=== PATIENT | male | born 1960 | race African-American/Black ===

== ENCOUNTER 2018-08-19 14:05 | Emergency (ER) | payer MEDICAID ==
[~2018-08-19] VITALS: Ht 167.6 cm; Wt 65.0 kg
[2018-08-19 14:57] LABS: BASOPHILS % 1.3 % (0.0-2.0); HEMATOCRIT. 31.2 % (42.0-52.0); HEMOGLOBIN. 10.7 g/dL (14.0-18.0); LYMPHOCYTES % 22.7 % (20.0-50.0); MEAN CORPUSCULAR HEMOGLOBIN 29.8 pg (28.0-32.0); MEAN PLATELET VOLUME 7.8 fl (7.4-10.4); MONOCYTES % 10.5 % (2.0-8.0); NEUTROPHILS % 62.5 % (40.0-76.0); PLATELET 233 x1000/uL (130-400); RED BLOOD CELL COUNT 3.58 mill/uL (4.7-6.1); RED CELL DISTRIBUTION WIDTH 13.6 % (11.6-14.6)
[2018-08-19 15:00] LABS: CHLORIDE 109 mEq/L (98-107)
[2018-08-19 15:05] LABS: *AMPHETAMINES SCREEN URINE NEGATIVE (NEGATIVE); *BARBITURATES SCREEN URINE NEGATIVE (NEGATIVE); *BENZODIAZEPINES SCREEN URINE NEGATIVE (NEGATIVE); *COCAINE SCREEN URINE NEGATIVE (NEGATIVE)
[2018-08-19 15:06] LABS: CANNABINOID URINE SCREEN NEGATIVE (NEGATIVE); METHADONE URINE SCREEN NEGATIVE (NEGATIVE); OPIATES URINE SCREEN NEGATIVE (NEGATIVE); PHENCYCLIDINE URINE SCREEN NEGATIVE (NEGATIVE)
[2018-08-19 15:12] LABS: ETHANOL BLOOD 332 mg/dL
[2018-08-19 19:50] VITALS: BP 117/59
== END 2018-08-19 19:50 | disposition home or self-care (01) ==
LOC: ER 14:05
DX: T51.0X1A Toxic effect of ethanol, accidental (unintentional), initial encounter (principal); F99 Mental disorder, not otherwise specified; F17.210 Nicotine dependence, cigarettes, uncomplicated; Y90.8 Blood alcohol level of 240 mg/100 ml or more; Z88.0 Allergy status to penicillin; Y92.89 Other specified places as the place of occurrence of the external cause
CPT/HCPCS: 36415; 80305; 80320; 99283; G0480

== ENCOUNTER 2021-03-18 14:46 | Inpatient (IN) | payer MEDICAID, OTHER ==
[~2021-03-18] VITALS: Ht 172.7 cm; Wt 68.0 kg
[~2021-03-18 14:46] MED LIST: HYDR-4001 MT; KEPP500 MT
[2021-03-18] MEDS ORDERED: IOHEXOL-350 100 ML BOTTLE ONE (16:04)
[2021-03-18 16:14] LABS: BASOPHILS % 0.8 % (0.0-2.0); EOSINOPHILS % 0.9 % (0.0-5.0); HEMATOCRIT. 36.3 % (42.0-52.0); HEMOGLOBIN. 11.8 g/dL (14.0-18.0); LYMPHOCYTES % 19.9 % (20.0-50.0); MEAN CORPUSCULAR HEMOGLOBIN 26.7 pg (28.0-32.0); MEAN PLATELET VOLUME 8.5 fl (7.4-10.4); NEUTROPHILS % 68.4 % (40.0-76.0); PLATELET 262 x1000/uL (130-400); RED BLOOD CELL COUNT 4.43 mill/uL (4.7-6.1); RED CELL DISTRIBUTION WIDTH 13.6 % (11.6-14.6)
[2021-03-18 16:19] LABS: CHLORIDE 105 mEq/L (98-107)
[2021-03-18 16:24] LABS: ETHANOL BLOOD < 10 mg/dL
[2021-03-18] MEDS ORDERED: HYDROCODONE/ACETAMINOPHEN 5/325MG TABLET PO PRN (20:15)
[2021-03-18] MEDS ORDERED: LORAZEPAM 0.5MG TABLET PO PRN (20:15)
[2021-03-18] MEDS ORDERED: ASPIRIN 325MG EC TABLET PO NR (20:15)
[2021-03-18] MEDS ORDERED: ACETAMINOPHEN 325MG TABLET PO PRN ×2 (20:15)
[2021-03-18] MEDS ORDERED: IPRATROPIUM/ALBUTEROL 0.5-3(2.5)MG/3ML NEB HHN PRN (20:15)
[2021-03-18] MEDS ORDERED: ONDANSETRON HCL 4MG/2ML INJ IV PRN (20:15)
[2021-03-18] MEDS ORDERED: DOCUSATE SODIUM 100MG CAPSULE PO PRN (20:15)
[2021-03-18] MEDS ORDERED: ATORVASTATIN CALCIUM 20MG TABLET PO SCH (21:00)
[2021-03-18] MEDS ORDERED: NALOXONE HCL 0.4MG/ML VIAL IV PRN (23:30)
[2021-03-19 07:44] LABS: BASOPHILS % 0.7 % (0.0-2.0); EOSINOPHILS % 1.6 % (0.0-5.0); HEMATOCRIT. 37.5 % (42.0-52.0); HEMOGLOBIN. 12.7 g/dL (14.0-18.0); LYMPHOCYTES % 16.3 % (20.0-50.0); MEAN CORPUSCULAR HEMOGLOBIN 27.6 pg (28.0-32.0); MEAN CORPUSCULAR VOLUME 81.8 fL (80.0-94.0); MEAN PLATELET VOLUME 8.7 fl (7.4-10.4); NEUTROPHILS % 72.4 % (40.0-76.0); PLATELET 272 x1000/uL (130-400); RED BLOOD CELL COUNT 4.58 mill/uL (4.7-6.1); RED CELL DISTRIBUTION WIDTH 13.7 % (11.6-14.6)
[2021-03-19 07:50] LABS: CHLORIDE 107 mEq/L (98-107)
[2021-03-19 08:00] VITALS: BP_SYST 129; BP_SYST 131; BP_DIAS 62; BP_DIAS 63
[2021-03-19] MEDS: ASPIRIN 81MG TABLET PO SCH (09:38)
[2021-03-19 12:00] VITALS: BP_SYST 128; BP_SYST 130; BP_DIAS 60
[2021-03-19 16:00] VITALS: BP 124/66
[2021-03-19 20:00] VITALS: BP 153/66
[2021-03-19] MEDS: ATORVASTATIN CALCIUM 40MG TABLET PO SCH (21:33)
[2021-03-20] VITALS: BP 147/55
[2021-03-20 04:00] VITALS: BP 161/66
[2021-03-20] MEDS: CLONIDINE 0.1MG TABLET PO PRN (04:49)
[2021-03-20 08:00] VITALS: BP 149/79
[2021-03-20 08:47] LABS: BASOPHILS % 0.7 % (0.0-2.0); HEMOGLOBIN. 12.9 g/dL (14.0-18.0); LYMPHOCYTES % 17.2 % (20.0-50.0); MEAN CORPUSCULAR HEMOGLOBIN 27.1 pg (28.0-32.0); MEAN CORPUSCULAR VOLUME 81.9 fL (80.0-94.0); MEAN PLATELET VOLUME 8.5 fl (7.4-10.4); MONOCYTES % 10.2 % (2.0-8.0); NEUTROPHILS % 69.9 % (40.0-76.0); PLATELET 275 x1000/uL (130-400); RED BLOOD CELL COUNT 4.76 mill/uL (4.7-6.1); RED CELL DISTRIBUTION WIDTH 13.5 % (11.6-14.6)
[2021-03-20 08:49] LABS: CHLORIDE 106 mEq/L (98-107)
[2021-03-20] MEDS: ASPIRIN 81MG TABLET PO SCH (09:27)
[2021-03-20 12:00] VITALS: BP 128/69
[2021-03-20] MEDS: DILTIAZEM HCL 30MG TABLET PO SCH ×2 (14:00→22:47)
[2021-03-20 15:43] VITALS: BP 135/58
[2021-03-20 20:00] VITALS: BP 151/79
[2021-03-20] MEDS: ATORVASTATIN CALCIUM 40MG TABLET PO SCH (21:00)
[2021-03-21] VITALS: BP 136/66
[2021-03-21 04:00] VITALS: BP 137/42
[2021-03-21 07:52] LABS: CHLORIDE 109 mEq/L (98-107)
[2021-03-21 08:01] LABS: BASOPHILS % 0.7 % (0.0-2.0); EOSINOPHILS % 2.4 % (0.0-5.0); HEMATOCRIT. 40.9 % (42.0-52.0); HEMOGLOBIN. 13.4 g/dL (14.0-18.0); LYMPHOCYTES % 18.8 % (20.0-50.0); MEAN CORPUSCULAR VOLUME 82.2 fL (80.0-94.0); MEAN PLATELET VOLUME 8.7 fl (7.4-10.4); MONOCYTES % 10.7 % (2.0-8.0); NEUTROPHILS % 67.4 % (40.0-76.0); PLATELET 279 x1000/uL (130-400); RED BLOOD CELL COUNT 4.97 mill/uL (4.7-6.1); RED CELL DISTRIBUTION WIDTH 13.2 % (11.6-14.6)
[2021-03-21 08:30] VITALS: BP 155/53
[2021-03-21] MEDS: CLOPIDOGREL 75MG TABLET PO SCH (09:37)
[2021-03-21] MEDS: ASPIRIN 81MG TABLET PO SCH (09:37)
[2021-03-21] MEDS: DILTIAZEM HCL 30MG TABLET PO SCH ×2 (09:37→21:48)
[2021-03-21] MEDS: ENOXAPARIN 40MG/0.4ML SYR SUBCUT SCH (09:37)
[2021-03-21 12:00] VITALS: BP 141/81
[2021-03-21 16:00] VITALS: BP 160/75
[2021-03-21] MEDS: CLONIDINE 0.1MG TABLET PO PRN (17:44)
[2021-03-21 20:00] VITALS: BP 113/47
[2021-03-21] MEDS: ATORVASTATIN CALCIUM 40MG TABLET PO SCH (21:48)
[2021-03-22] VITALS: BP 136/58
[2021-03-22 04:00] VITALS: BP 146/63
[2021-03-22 08:15] VITALS: BP 146/61
[2021-03-22] MEDS: ASPIRIN 81MG TABLET PO SCH (08:50)
[2021-03-22] MEDS: CLOPIDOGREL 75MG TABLET PO SCH (08:50)
[2021-03-22] MEDS: DILTIAZEM HCL 30MG TABLET PO SCH (08:51)
[2021-03-22] MEDS: ENOXAPARIN 40MG/0.4ML SYR SUBCUT SCH (08:51)
[2021-03-22] MEDS ORDERED: LIP40 PO (11:33)
[2021-03-22] MEDS ORDERED: DILT30TA38 PO (11:33)
[2021-03-22] MEDS ORDERED: CLOP75TA15 PO (11:33)
[2021-03-22 12:00] VITALS: BP 137/64
[2021-03-22 13:39] VITALS: BP 137/64
[2021-03-22 16:16] VITALS: BP 133/64
== END 2021-03-22 16:15 | disposition home health service (06) | DRG 45 ==
LOC: ER 14:52 → MICUSO 19:26 → EDBEDREQSVC 19:28 → EDBEDREQ 19:28 → EDBEDREQTM 19:28 → 5WST 23:21
PROVIDERS: ADMIT Internal Medicine; ATTEND Internal Medicine
DX: I63.411 Cerebral infarction due to embolism of right middle cerebral artery (principal); E44.1 Mild protein-calorie malnutrition; G81.94 Hemiplegia, unspecified affecting left nondominant side; E78.5 Hyperlipidemia, unspecified; F17.210 Nicotine dependence, cigarettes, uncomplicated; I10 Essential (primary) hypertension; J44.9 Chronic obstructive pulmonary disease, unspecified; Z20.822 Contact with and (suspected) exposure to COVID-19; F10.20 Alcohol dependence, uncomplicated; R47.1 Dysarthria and anarthria; R29.810 Facial weakness; Z88.0 Allergy status to penicillin; Z79.899 Other long term (current) drug therapy; Z71.6 Tobacco abuse counseling; Z71.41 Alcohol abuse counseling and surveillance of alcoholic; Z68.22 Body mass index [BMI] 22.0-22.9, adult
CPT/HCPCS: 36415; 70496; 70498; 70551; 71045; 80048; 80053; 80061; 80320; 82962; 83036; 84484; 85025; 87426; 92610; 93005; 93306; 93970; 97112; 97116; 97162; 97165; 97530; 99291; J1650; Q9967; G0480

== ENCOUNTER 2021-05-17 11:45 | Inpatient (IN) | payer OTHER ==
[~2021-05-17] VITALS: Ht 175.3 cm; Wt 57.2 kg
[~2021-05-17 11:45] MED LIST changes: +CLOP75TA15 PO; +DILT30TA38 PO; +DOCU250C14 MT; +LEVO500T89 MT; +LIP40 PO
[2021-05-17] MEDS ORDERED: ASPIRIN 325MG TABLET PO ONE (13:00)
[2021-05-17] MEDS ORDERED: IOHEXOL-350 100 ML BOTTLE ONE (13:08)
[2021-05-17 13:10] LABS: BASOPHILS % 0.9 % (0.0-2.0); EOSINOPHILS % 1.7 % (0.0-5.0); HEMATOCRIT. 30.1 % (42.0-52.0); HEMOGLOBIN. 10.1 g/dL (14.0-18.0); LYMPHOCYTES % 9.9 % (20.0-50.0); MEAN CORPUSCULAR HEMOGLOBIN 26.3 pg (28.0-32.0); MEAN PLATELET VOLUME 7.4 fl (7.4-10.4); MONOCYTES % 11.4 % (2.0-8.0); NEUTROPHILS % 76.1 % (40.0-76.0); PLATELET 594 x1000/uL (130-400); RED BLOOD CELL COUNT 3.86 mill/uL (4.7-6.1); RED CELL DISTRIBUTION WIDTH 13.7 % (11.6-14.6)
[2021-05-17 13:19] LABS: CHLORIDE 103 mEq/L (98-107)
[2021-05-17 13:32] LABS: ETHANOL BLOOD < 10 mg/dL
[2021-05-17 19:12] LABS: CLARITY URINE CLEAR (CLEAR); COLOR URINE YELLOW (YELLOW); KETONES URINE NEGATIVE (NEGATIVE); LEUKOCYTE ESTERASE URINE NEGATIVE (NEGATIVE); NITRITE URINE NEGATIVE (NEGATIVE); OCCULT BLOOD URINE 2+ (NEGATIVE); PH URINE 6.5 (4.5-8.0); PROTEIN URINE NEGATIVE (NEGATIVE); SPECIFIC GRAVITY URINE 1.038 (1.005-1.030); UROBILINOGEN URINE 0.2 E.U./dL (0.2-1.0)
[2021-05-17 19:21] LABS: *BARBITURATES SCREEN URINE NEGATIVE (NEGATIVE); *BENZODIAZEPINES SCREEN URINE NEGATIVE (NEGATIVE); *COCAINE SCREEN URINE NEGATIVE (NEGATIVE); OPIATES URINE SCREEN NEGATIVE (NEGATIVE)
[2021-05-17 19:22] LABS: *AMPHETAMINES SCREEN URINE NEGATIVE (NEGATIVE); CANNABINOID URINE SCREEN NEGATIVE (NEGATIVE); METHADONE URINE SCREEN NEGATIVE (NEGATIVE); PHENCYCLIDINE URINE SCREEN NEGATIVE (NEGATIVE)
[2021-05-17 22:15] VITALS: BP 121/38
[2021-05-18] MEDS ORDERED: RISP3 PO (02:55)
[2021-05-18] MEDS ORDERED: DOCU250C14 MT (02:55)
[2021-05-18] MEDS ORDERED: SERT50TA PO (02:55)
[2021-05-18 04:00] VITALS: BP 119/48
[2021-05-18 05:40] LABS: BASOPHILS % 1.1 % (0.0-2.0); EOSINOPHILS % 2.9 % (0.0-5.0); HEMATOCRIT. 30.6 % (42.0-52.0); HEMOGLOBIN. 10.3 g/dL (14.0-18.0); LYMPHOCYTES % 13.6 % (20.0-50.0); MEAN CORPUSCULAR HEMOGLOBIN 26.3 pg (28.0-32.0); MEAN PLATELET VOLUME 7.5 fl (7.4-10.4); MONOCYTES % 9.9 % (2.0-8.0); NEUTROPHILS % 72.5 % (40.0-76.0); PLATELET 598 x1000/uL (130-400); RED BLOOD CELL COUNT 3.92 mill/uL (4.7-6.1); RED CELL DISTRIBUTION WIDTH 13.9 % (11.6-14.6)
[2021-05-18 07:41] LABS: CHLORIDE 105 mEq/L (98-107)
[2021-05-18 07:52] LABS: LDL CHOLESTEROL 120 mg/dL (5-100)
[2021-05-18 07:54] LABS: HDL CHOLESTEROL 25 mg/dL (40-59)
[2021-05-18 08:00] VITALS: BP 116/51
[2021-05-18] MEDS: DOCUSATE SODIUM 250MG CAPSULE PO SCH ×2 (08:56→17:33)
[2021-05-18] MEDS: CLOPIDOGREL 75MG TABLET PO SCH (08:56)
[2021-05-18 11:45] VITALS: BP 112/59
[2021-05-18 15:59] VITALS: BP 110/60
[2021-05-18 20:00] VITALS: BP 127/52
[2021-05-18] MEDS: RISPERIDONE 1MG TABLET PO SCH (21:24)
[2021-05-18] MEDS: SERTRALINE HCL 50MG TABLET PO SCH (21:24)
[2021-05-18] MEDS: ATORVASTATIN CALCIUM 40MG TABLET PO SCH (21:24)
[2021-05-18] MEDS: ENOXAPARIN 40MG/0.4ML SYR SUBCUT SCH (22:08)
[2021-05-19] VITALS: BP 120/53
[2021-05-19 04:00] VITALS: BP 137/41
[2021-05-19 08:00] VITALS: BP 130/64
[2021-05-19] MEDS: CLOPIDOGREL 75MG TABLET PO SCH (08:51)
[2021-05-19] MEDS: DOCUSATE SODIUM 250MG CAPSULE PO SCH ×2 (08:56→17:15)
[2021-05-19] MEDS: LEVOFLOXACIN 500MG TABLET PO SCH (11:21)
[2021-05-19 11:59] VITALS: BP 128/64
[2021-05-19 15:58] VITALS: BP 122/68
[2021-05-19 20:00] VITALS: BP 117/52
[2021-05-19] MEDS: ATORVASTATIN CALCIUM 40MG TABLET PO SCH (22:00)
[2021-05-19] MEDS: ENOXAPARIN 40MG/0.4ML SYR SUBCUT SCH (22:01)
[2021-05-19] MEDS: RISPERIDONE 1MG TABLET PO SCH (22:01)
[2021-05-19] MEDS: SERTRALINE HCL 50MG TABLET PO SCH (22:01)
[2021-05-20] VITALS: BP 148/52
[2021-05-20 04:00] VITALS: BP 115/40
[2021-05-20 08:00] VITALS: BP 130/46
[2021-05-20] MEDS: DOCUSATE SODIUM 250MG CAPSULE PO SCH ×2 (09:00→17:30)
[2021-05-20] MEDS: CLOPIDOGREL 75MG TABLET PO SCH (09:01)
[2021-05-20] MEDS: LEVOFLOXACIN 500MG TABLET PO SCH (10:18)
[2021-05-20] MEDS: RISPERIDONE 1MG TABLET PO SCH ×2 (10:53→17:30)
[2021-05-20 12:02] VITALS: BP 115/55
[2021-05-20 16:10] VITALS: BP 117/61
[2021-05-20] MEDS: ATORVASTATIN CALCIUM 40MG TABLET PO SCH (21:40)
[2021-05-20] MEDS: SERTRALINE HCL 50MG TABLET PO SCH (21:40)
[2021-05-20] MEDS: ENOXAPARIN 40MG/0.4ML SYR SUBCUT SCH (21:40)
[2021-05-21] VITALS: BP 114/51
[2021-05-21 04:00] VITALS: BP 97/46
[2021-05-21 08:00] VITALS: BP 122/80
[2021-05-21] MEDS: DOCUSATE SODIUM 250MG CAPSULE PO SCH ×2 (08:43→17:00)
[2021-05-21] MEDS: RISPERIDONE 1MG TABLET PO SCH ×2 (08:43→17:22)
[2021-05-21] MEDS: CLOPIDOGREL 75MG TABLET PO SCH (08:43)
[2021-05-21] MEDS: LEVOFLOXACIN 500MG TABLET PO SCH (11:00)
[2021-05-21] MEDS ORDERED: LIDOCAINE HCL 2% JELLY 5ML ONE (11:30)
[2021-05-21] MEDS ORDERED: MIDAZOLAM HCL 2 MG/2 ML VIAL ONE (11:30)
[2021-05-21] MEDS ORDERED: FENTANYL CITRATE/PF 50MCG/ML 2ML VIAL ONE (11:31)
[2021-05-21] MEDS ORDERED: TETRACAINE/BENZOCAINE/BUTAMBEN 20 GM SPRAY MM ONE (11:37)
[2021-05-21 12:00] VITALS: BP 118/87
[2021-05-21] MEDS ORDERED: ASPI-1406 MT (12:25)
[2021-05-21] MEDS ORDERED: APIX5TAB MT (12:25)
[2021-05-21 15:16] VITALS: BP 126/53
[2021-05-21 15:44] VITALS: BP 126/53
[2021-05-21] MEDS ORDERED: APIXABAN 5 MG TABLET PO SCH (17:00)
[2021-05-22] MEDS ORDERED: ASPIRIN 81MG TABLET PO SCH (09:00)
== END 2021-05-21 18:20 | disposition home health service (06) | DRG 45 ==
LOC: ER 11:51 → 6WST 14:29 → EDBEDREQ 14:44 → EDBEDREQTM 14:44 → EDBEDREQSVC 14:44 → ENRESERV 21:01
PROVIDERS: ADMIT Internal Medicine; ATTEND Internal Medicine
DX: I63.9 Cerebral infarction, unspecified (principal); E43 Unspecified severe protein-calorie malnutrition; G81.94 Hemiplegia, unspecified affecting left nondominant side; I51.3 Intracardiac thrombosis, not elsewhere classified; F10.21 Alcohol dependence, in remission; D64.9 Anemia, unspecified; I10 Essential (primary) hypertension; E78.5 Hyperlipidemia, unspecified; F17.210 Nicotine dependence, cigarettes, uncomplicated; Z20.822 Contact with and (suspected) exposure to COVID-19; F20.9 Schizophrenia, unspecified; I49.3 Ventricular premature depolarization; Z88.0 Allergy status to penicillin; Z79.01 Long term (current) use of anticoagulants; Z79.82 Long term (current) use of aspirin; Z79.899 Other long term (current) drug therapy; Z71.6 Tobacco abuse counseling; Z68.1 Body mass index [BMI] 19.9 or less, adult
CPT/HCPCS: 36415; 70496; 70498; 70551; 71045; 80048; 80053; 80061; 80305; 80320; 81003; 83036; 84484; 85025; 87426; 92610; 93005; 93312; 97110; 97162; 97166; 97530; 97535; 99285; J1650; J2250; J3010; Q9967; G0480